=== PATIENT | female | born 1990 ===

== ENCOUNTER 2021-03-11 12:30 | Outpatient (REF) | payer MEDICAID, SELFPAY ==
--- NOTE | 2021-03-11 13:32 | MHC.AU.ANO ---
Adult Audiological Evaluation Date of Visit: 03/11/21 Reason for Appointment: Audiological evaluation due to concern for decreased hearing. She notes that over the past years she's noticed more difficulties understanding speech and is asking for repetition more frequently. She also notes some difficulties hearing the television. She denies any changes to her medical history over the past year. Does patient feel they have a hearing loss?: Yes When Was Hearing Difficulty First Noticed?: over the last year Has hearing been tested previously?: No Hearing Handicap Inventory: HHIE SCORE: 6 Based on HHIE score, patient has: No perceived hearing handicap Ear History: Family History of Hearing Loss?: Yes, mother is in her 50s and has hearing aids Recent Ear Infections: Ear infection at age 18 Medical History: Medical History: Unremarkable Medical History Medication List: Adderall XR 10 mg daily, amphetamine sulfate 5 mg daily at 3 pm, tri-sprintec control daily Otoscopy: Right Ear: Unremarkable Left Ear: Unremarkable Tympanometry: Tympanometry performed due to: To assess integrity of the middle ear system Right Ear: Hypercompliant Middle Ear System (Type Ad) Left Ear: Normal Middle Ear System (Type A) Otoacoustic Emissions Frequency Range Used: 1.6-8 kHz Right Ear Results: Present Emissions Analysis: Present emissions suggest normal cochlear function. Rules out peripheral hearing loss greater than a mild degree. Left Ear Results: Present Emissions Analysis: Present emissions suggest normal cochlear function. Rules out peripheral hearing loss greater than a mild degree. Hearing Evaluation: Transducer(s) Used: Insert Earphones, Bone Conduction Method: Conventional Audiometry Stimuli Used: Pure Tones Right Ear: Description of Hearing: Normal hearing from 250-8000 Hz. Left Ear: Description of Hearing: Normal hearing from 250-8000 Hz. Speech Recognition Threshold (SRT): Method Used: Monitored Live Voice Stimuli Used: Spondee Words Right Ear: 5 dBHL Left Ear: 0 dBHL Word Discrimination: Method: Recorded Lists Word Lists Used: NU-6 Right Ear: 100% at 50 dBHL Left Ear: 100% at 50 dBHL QuickSIN: 0 dB SNR loss when presented binaurally at 55 dBHL, indicating normal [id number] understanding abilities. Recommendations: No further audiological action is indicated at this time. Audiological re-evaluation if changes are noted. Diagnosis: Primary Diagnosis: H93.293 Abnormal Auditory Perception Services Performed: Pure Tone- Air (CPT 45211) Speech Audiometry Threshold, with Speech Recognition (CPT 43801) Diagnostic Otoacoustic Emissions (CPT 90985, 26+TC) Tympanometry (CPT 49994) Unlisted Otorhinolaryngological Service or Procedure (CPT 69943) Signature: Provider: Jermaine Elena, CCC-A
== END 2021-03-11 12:31 | disposition home or self-care (01) ==
LOC: HO.SH 12:30
PROVIDERS: Visit Provider Family Medicine
DX: H93.293 Other abnormal auditory perceptions, bilateral (principal)
CPT/HCPCS: 92552; 92556; 92567; 92588; 92700